=== PATIENT | female | born 1985 | race Caucasian/White ===

== ENCOUNTER 2016-11-13 18:27 | Emergency (ER) | payer OTHER ==
[~2016-11-13] VITALS: Ht 162.6 cm; Wt 77.1 kg
[~2016-11-13 18:27] MED LIST: PNV11TAB PO
--- OUTSIDE RECORDS SUMMARY | 2016-11-13 18:32 | XMS REPORT | Continuity of Care Document ---
Author Author [facility] Organization [facility] Address Unknown Phone Unavailable Care Team Providers Care Correctional Manager Name Role Phone MIGUELITO MARSH DO PCP Insurance Providers Payer Name Policy Number Subscriber Name Relationship Self Pay Izzy Chakraborty 18 Self / Same As Patient Advance Directives Directive Response Recorded Date/Time Advance Directives No 03/01/15 7:26pm Resuscitation Status Full Code 03/01/15 7:26pm Problems Medical Problems Problem Onset Date Status Right wrist sprain Unknown Active Vaginal bleeding in patient at less than 20 weeks gestation Unknown Active Vaginal bleeding in patient at less than 20 weeks gestation Unknown Active Threatened miscarriage in early Unknown Active Medications Medication Dose Route Sig Days/Qty Instructions Order Date Discontinued Date Status Ayz141/Iron Fumarate/FA/Dss 1 Each PO DAILY 03/01/15 Active Social History Social History Problem Response Recorded Date/Time Alcohol Use Occasionally Uses 03/01/2015 7:26pm Recreational Drug Use No 03/01/2015 7:26pm Recent Foreign Travel No 03/01/2015 7:26pm Recent Infectious Disease Exposure No 03/01/2015 7:26pm Hospitalization with Isolation Denies 03/01/2015 7:26pm Smoking Status Current Everyday Smoker 03/01/2015 7:26pm Query Response Start Date Stop Date Smoking Status Current Everyday Smoker Hospital Discharge Instructions No hospital discharge instructions. Plan of Care No plan of care. Functional Status No functional status results. Allergies, Adverse Reactions, Alerts Allergen Type Severity Reaction Status Last Updated No Known Drug Allergies Active 09/26/14 Immunizations No immunization records. Vital Signs Acute Vital Signs Vital Response Date/Time Temperature (Fahrenheit) 98.0 degrees F (97.6 - 99.5) Temperature (Calculated Celsius) 36.81623 degrees C (36.4 - 37.5) Temperature Source Temporal Pulse Rate (adult) 90 bpm (60 - 90) Respiratory Rate 18 bpm (12 - 24) O2 Sat by Pulse Oximetry 98 % (88 - 100) Blood Pressure 125/75 mm Hg Pain Pain Intensity 2 Height (Feet) 5 feet Height (Inches) 4 inches Height (Calculated Centimeters) 162.857546 cm Weight (Pounds) 160 pounds Weight (Calculated Grams) 13962.932 gm Weight (Calculated Kilograms) 72.839465 kilograms Calculated BMI 27.46 Results Laboratory Results Test Name Result Units Flags Reference Collection Date/Time Result Date/ Time Comments White Blood Count 11.5 10^3/uL H 4.3-11.0 02/27/2015 3:02/27/2015 3: 20am Red Blood Count 4.46 10^6/uL 4.35-5.85 02/27/2015 3:1202/27/2015 3: 20am Hemoglobin 13.8 G/DL 11.5-16.0 02/27/2015 3:02/27/2015 3:20am Hematocrit 41 % 35-52 02/27/2015 3:02/27/2015 3:20am Mean Corpuscular Volume 91 FL 80-99 02/27/2015 3:02/27/2015 3: 20am Mean Corpuscular Hemoglobin 31 PG 25-34 02/27/2015 3:02/27/2015 3: 20am Mean Corpuscular Hemoglobin Concent 34 G/DL 32-36 02/27/2015 3:1201/2015 3:20am Red Cell Distribution Width 12.5 % 10.0-14.5 02/27/2015 3:122014 3:20am Platelet Count 332 10^3/uL 130-400 02/27/2015 3:1202/27/2015 3:20am Mean Platelet Volume 8.6 FL 7.4-10.4 02/27/2015 3:1202/27/2015 3: 20am Neutrophils (%) (Auto) 57 % 42-75 02/27/2015 3:02/27/2015 3:20am Lymphocytes (%) (Auto) 30 % 12-44 02/27/2015 3:02/27/2015 3:20am Monocytes (%) (Auto) 11 % 0-12 02/27/2015 3:02/27/2015 3:20am Eosinophils (%) (Auto) 1 % 0-10 02/27/2015 3:02/27/2015 3:20am Basophils (%) (Auto) 1 % 0-10 02/27/2015 3:02/27/2015 3:20am Neutrophils # (Auto) 6.6 X 10^3 1.8-7.8 02/27/2015 3:02/27/2015 3: 20am Lymphocytes # (Auto) 3.5 X 10^3 1.0-4.0 02/27/2015 3:02/27/2015 3: 20am Monocytes # (Auto) 1.2 X 10^3 H 0.0-1.0 02/27/2015 3:02/27/2015 3: 20am Eosinophils # (Auto) 0.2 10^3/uL 0.0-0.3 02/27/2015 3:02/27/2015 3 :20am Basophils # (Auto) 0.1 10^3/uL 0.0-0.1 02/27/2015 3:02/27/2015 3: 20am Urine Color YELLOW 02/27/2015 3:02/27/2015 3:40am Urine Clarity SLIGHTLY CLOUDY 02/27/2015 3:02/27/2015 3:40am Urine pH 6 5-9 02/27/2015 3:02/27/2015 3:40am Urine Specific [place] 1.015 * 1.016-1.022 02/27/2015 3:2014 3:40am Urine Protein NEGATIVE NEGATIVE 02/27/2015 3:02/27/2015 3:40am Urine Glucose (UA) NEGATIVE NEGATIVE 02/27/2015 3:02/27/2015 3: 40am Urine RBC (Auto) 4+ * NEGATIVE 02/27/2015 3:02/27/2015 3:40am Urine Ketones NEGATIVE NEGATIVE 02/27/2015 3:02/27/2015 3:40am Urine Nitrite NEGATIVE NEGATIVE 02/27/2015 3:02/27/2015 3:40am Urine Bilirubin NEGATIVE NEGATIVE 02/27/2015 3:02/27/2015 3: 40am Urine Urobilinogen NORMAL MG/DL NORMAL 02/27/2015 3:02/27/2015 3: 40am Urine Leukocyte Esterase 2+ * NEGATIVE 02/27/2015 3:02/27/2015 3: 40am Urine RBC 10-25 /HPF * 02/27/2015 3:02/27/2015 3:40am Urine WBC 0-2 /HPF 02/27/2015 3:02/27/2015 3:40am Urine Bacteria FEW /HPF * 02/27/2015 3:02/27/2015 3:40am Urine Squamous Epithelial Cells 10-25 /HPF * 02/27/2015 3:2014 3:40am Urine Crystals NONE /LPF 02/27/2015 3:02/27/2015 3:40am Urine Casts NONE /LPF 02/27/2015 3:02/27/2015 3:40am Urine Mucus NEGATIVE /LPF 02/27/2015 3:02/27/2015 3:40am Urine Culture Indicated YES 02/27/2015 3:02/27/2015 3:40am Sodium Level 139 MMOL/L 135-145 02/27/2015 3:02/27/2015 3:37am Potassium Level 3.8 MMOL/L 3.6-5.0 02/27/2015 3:02/27/2015 3:37am Chloride Level 106 MMOL/L 98-107 02/27/2015 3:02/27/2015 3:37am Carbon Dioxide Level 23 MMOL/L 21-32 02/27/2015 3:02/27/2015 3: 37am Blood Urea Nitrogen 9 MG/DL 7-18 02/27/2015 3:02/27/2015 3:37am Creatinine 0.75 MG/DL 0.60-1.30 02/27/2015 3:02/27/2015 3:37am BUN/Creatinine Ratio 12 02/27/2015 3:12am 02/27/2015 3:37am Estimat Glomerular Filtration Rate > 60 02/27/2015 3:12am 2014 3:37am GFR INTERPRETIVE DATA UNITS FOR ESTIMATED GFR (eGFR): mL/min/1.73 M2 REFERENCE RANGE FOR ESTIMATED GFR (eGFR) eGFR NORMAL eGFR >60 MODERATELY DECREASED eGFR 30-59 SEVERLY DECREASED eGFR 15-29 KIDNEY FAILURE <15 (OR DIALYSIS) Glucose Level 101 MG/DL 70-105 02/27/2015 3:12am 02/27/2015 3:37am Calcium Level 9.4 MG/DL 8.5-10.1 02/27/2015 3:12am 02/27/2015 3:37am White Blood Count 11.4 10^3/uL H 4.3-11.0 03/01/2015 8:15pm 03/01/2015 8: 54pm Red Blood Count 4.44 10^6/uL 4.35-5.85 03/01/2015 8:15pm 03/01/2015 8: 54pm Hemoglobin 13.5 G/DL 11.5-16.0 03/01/2015 8:15pm 03/01/2015 8:54pm Hematocrit 40 % 35-52 03/01/2015 8:15pm 03/01/2015 8:54pm Mean Corpuscular Volume 90 FL 80-99 03/01/2015 8:15pm 03/01/2015 8: 54pm Mean Corpuscular Hemoglobin 30 PG 25-34 03/01/2015 8:15pm 03/01/2015 8: 54pm Mean Corpuscular Hemoglobin Concent 34 G/DL 32-36 03/01/2015 8:15pm 03/2015 8:54pm Red Cell Distribution Width 12.5 % 10.0-14.5 03/01/2015 8:15pm 2014 8:54pm Platelet Count 352 10^3/uL 130-400 03/01/2015 8:15pm 03/01/2015 8:54pm Mean Platelet Volume 8.5 FL 7.4-10.4 03/01/2015 8:15pm 03/01/2015 8: 54pm Neutrophils (%) (Auto) 54 % 42-75 03/01/2015 8:15pm 03/01/2015 8:54pm Lymphocytes (%) (Auto) 33 % 12-44 03/01/2015 8:15pm 03/01/2015 8:54pm Monocytes (%) (Auto) 11 % 0-12 03/01/2015 8:15pm 03/01/2015 8:54pm Eosinophils (%) (Auto) 2 % 0-10 03/01/2015 8:15pm 03/01/2015 8:54pm Basophils (%) (Auto) 1 % 0-10 03/01/2015 8:15pm 03/01/2015 8:54pm Neutrophils # (Auto) 6.1 X 10^3 1.8-7.8 03/01/2015 8:15pm 03/01/2015 8: 54pm Lymphocytes # (Auto) 3.7 X 10^3 1.0-4.0 03/01/2015 8:15pm 03/01/2015 8: 54pm Monocytes # (Auto) 1.2 X 10^3 H 0.0-1.0 03/01/2015 8:15pm 03/01/2015 8: 54pm Eosinophils # (Auto) 0.3 10^3/uL 0.0-0.3 03/01/2015 8:15pm 03/01/2015 8 :54pm Basophils # (Auto) 0.1 10^3/uL 0.0-0.1 03/01/2015 8:15pm 03/01/2015 8: 54pm Procedures No known history of procedures. Encounters Encounter Location Date/Time Departed Emergency Room [facility] 03/01/15 7:21pm Departed Emergency Room [facility] 02/27/15 2:19am Recent Diagnosis
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
[2016-11-13] MEDS ORDERED: NAPR500T PO (20:20)
[2016-11-13] MEDS ORDERED: CYCL10TA9 PO (20:20)
[2016-11-13 20:28] VITALS: BP 116/78
== END 2016-11-13 20:28 | disposition home or self-care (01) ==
LOC: EDUNIT# 18:27 → ER 18:28
DX: S16.1XXA Strain of muscle, fascia and tendon at neck level, initial encounter (principal); S29.012A Strain of muscle and tendon of back wall of thorax, initial encounter; S20.212A Contusion of left front wall of thorax, initial encounter; V43.52XA Car driver injured in collision with other type car in traffic accident, initial encounter; Y92.414 Local residential or business street as the place of occurrence of the external cause; Y99.8 Other external cause status
CPT/HCPCS: 70450; 71010; 72125; 72128; 99281